=== PATIENT | female | born 1950 ===

== ENCOUNTER 2018-12-14 06:46 | Day surgery (SDC) | payer MEDICARE ==
[~2018-12-14 06:46] MED LIST: Acetaminophen TAB* 325 MG PO PRN; Buffered Lidocaine 1% SYRIN* 1 ML/SYRINGE INTRADERM ONE
[2018-12-14] MEDS ORDERED: Midazolam* 1 MG/ML 2 ML VIAL (2 MG) ONE (08:38)
[2018-12-14 09:49] VITALS: BP 111/59
--- NOTE | 2018-12-14 10:25 | OP ---
OPERATIVE NOTE: DATE OF OPERATION: 12/14/18 DATE OF : 46 SURGEON: Rito Arnold M.D. PREOPERATIVE DIAGNOSIS: Cataract, right eye. POSTOPERATIVE DIAGNOSIS: Cataract, right eye. OPERATIVE PROCEDURE: Extracapsular cataract extraction with IOL, right eye. PROCEDURE: The patient was brought to the operating room after being given 1/2% Alcaine with epineph rine drops in the preoperative area. The eye was prepped and draped in the usual sterile fashion. S terile drape and eyelid speculum were placed. Again, topical 1/2% Alcaine with epinephrine was given . A paracentesis incision was made at the 9 o'clock position with the No.75 blade. Clear cornea inc ision 2.2 x 2.2-mm was created at the 12 o'clock position starting at the anterior limbus using the 2 .2-mm keratome. The anterior chamber was irrigated with 0.4 mL of 1% non-preservative intracameral l idocaine and filled with DisCoVisc. A capsulorrhexis was completed using the cystotome and the Utrat a forceps. Hydrodissection was performed with balanced salt solution. The lens nucleus was removed w ith the Phacoemulsification handpiece without incident. Cortex was removed with the irrigation-aspir ation handpiece. The capsular bag was re-inflated using DisCoVisc and an SN6AT6 22.5 implant was ins erted with the shooter oriented to the 111 degree meridian. Horizontal reference randolph were made wit h the patient in the seated position in the preoperative area. The irrigation-aspiration handpiece w as used to remove all residual DisCoVisc. The eye was refilled with balanced salt solution and the w ound checked and found to be watertight. Topical Maxitrol drops were given. [id number]/[facility] #: [id number]
[2018-12-14] MEDS ORDERED: Cyclopentolate 1% OPTH.SOL* 2 ML BTL ONE (13:57)
[2018-12-14] MEDS ORDERED: Phenylephrine OPHTH SOL 2.5%* 2 ML ONE (13:57)
[2018-12-14] MEDS ORDERED: Lidocaine 2% EPI 1:200000 MPF*10-20 ML VIAL ONE (13:57)
[2018-12-14] MEDS ORDERED: Lidocaine 1%* 5 ML VIAL ONE (13:57)
[2018-12-14] MEDS ORDERED: Ketorolac 0.5% OPHTH (NF) 0.5 % 5 ML BTL ONE (13:57)
[2018-12-14] MEDS ORDERED: Povidone Iodine 5% OPTH* 30 ML BTL ONE (13:57)
[2018-12-14] MEDS ORDERED: acetaZOLAMIDE TAB* 250 MG ONE (13:57)
[2018-12-14] MEDS ORDERED: Neomycin/Polymy/Dex OPTH.SUSP* MAXITROL 0.1% 5 ML ONE (13:57)
[2018-12-14] MEDS ORDERED: Proparacaine 0.5% OPHTH.SOL* 15 ML BTL ONE (13:57)
== END 2018-12-14 08:59 | disposition home or self-care (01) ==
LOC: OREAST 06:46
PROVIDERS: ATTEND Specialist
DX: H25.811 Combined forms of age-related cataract, right eye (principal); H55.01 Congenital nystagmus; H50.111 Monocular exotropia, right eye; H53.021 Refractive amblyopia, right eye; D23.122 Other benign neoplasm of skin of left lower eyelid, including canthus; Z72.0 Tobacco use; J44.9 Chronic obstructive pulmonary disease, unspecified; E11.9 Type 2 diabetes mellitus without complications
CPT/HCPCS: A9270-GY; J2250; V2787

== ENCOUNTER 2018-12-21 08:47 | Day surgery (SDC) | payer MEDICARE ==
[2018-12-21] MEDS ORDERED: Lidocaine 2% PF * 5 ML VIAL ONE (11:08)
[2018-12-21] MEDS ORDERED: Propofol* 10 MG/ML 20 ML BTL ONE (11:08)
[2018-12-21 12:54] VITALS: BP 101/67
--- NOTE | 2018-12-21 12:54 | OP ---
OPERATIVE NOTE: DATE OF OPERATION: 12/21/18 DATE OF : 46 SURGEON: Rito Arnold M.D. PREOPERATIVE DIAGNOSIS: Cataract, left eye. POSTOPERATIVE DIAGNOSIS: Cataract, left eye. OPERATIVE PROCEDURE: Extracapsular cataract extraction with intraocular lens implant, left eye. PROCEDURE: The patient was brought to the operating room after being given 1/2% Alcaine with epineph rine drops in the preoperative area. The eye was prepped and draped in the usual sterile fashion. S terile drape and eyelid speculum were placed. Again, topical 1/2% Alcaine with epinephrine was given . A paracentesis incision was made at the 3 o'clock position with the No.75 blade. Clear cornea inc ision 2.2 x 2.2-mm was created at the 6 o'clock position starting at the anterior limbus using the 2. 2-mm keratome. The anterior chamber was irrigated with 0.4 mL of 1% non-preservative intracameral li docaine and filled with DisCoVisc. A capsulorrhexis was completed using the cystotome and the Utrata forceps. Hydrodissection was performed with balanced salt solution. The lens nucleus was removed wi th the Phacoemulsification handpiece without incident. Cortex was removed with the irrigation-aspira tion handpiece. The capsular bag was re-inflated using DisCoVisc and an SN6AT4 23.5 implant was inse rted with the shooter. The irrigation-aspiration handpiece was used to remove all residual DisCoVisc . The eye was refilled with balanced salt solution and the wound checked and found to be watertight. Topical Maxitrol drops were given. [id number]/[facility] #: [id number]
[2018-12-21] MEDS ORDERED: Phenylephrine OPHTH SOL 2.5%* 2 ML ONE (13:57)
[2018-12-21] MEDS ORDERED: Cyclopentolate 1% OPTH.SOL* 2 ML BTL ONE (13:57)
[2018-12-21] MEDS ORDERED: Ketorolac 0.5% OPHTH (NF) 0.5 % 5 ML BTL ONE (13:57)
[2018-12-21] MEDS ORDERED: Neomycin/Polymy/Dex OPTH.SUSP* MAXITROL 0.1% 5 ML ONE (13:57)
[2018-12-21] MEDS ORDERED: Povidone Iodine 5% OPTH* 30 ML BTL ONE (13:57)
[2018-12-21] MEDS ORDERED: Lidocaine 2% EPI 1:200000 MPF*10-20 ML VIAL ONE (13:57)
[2018-12-21] MEDS ORDERED: Lidocaine 1%* 5 ML VIAL ONE (13:57)
[2018-12-21] MEDS ORDERED: Proparacaine 0.5% OPHTH.SOL* 15 ML BTL ONE (13:58)
== END 2018-12-21 12:08 | disposition home or self-care (01) ==
LOC: OREAST 08:47
PROVIDERS: ATTEND Specialist
DX: H25.812 Combined forms of age-related cataract, left eye (principal); H55.01 Congenital nystagmus; H50.111 Monocular exotropia, right eye; H53.021 Refractive amblyopia, right eye; D23.122 Other benign neoplasm of skin of left lower eyelid, including canthus; Z72.0 Tobacco use; E11.9 Type 2 diabetes mellitus without complications; Z79.84 Long term (current) use of oral hypoglycemic drugs; J44.9 Chronic obstructive pulmonary disease, unspecified
CPT/HCPCS: A9270-GY; J2704; V2787